=== PATIENT | female | born 1990 | race African-American/Black ===

== ENCOUNTER 2016-08-07 19:48 | Emergency (ER) | payer OTHER ==
[~2016-08-07] VITALS: Ht 144.8 cm; Wt 56.7 kg
[2016-08-07 19:48] VITALS: BP 110/67
[~2016-08-07 19:48] MED LIST: MIRALAX255 GM PO; TRINATE TABLET1 TAB PO
[2016-08-07] MEDS ORDERED: NAPROSYN500 MG PO (20:40)
[2016-08-07] MEDS ORDERED: NORFLEX100 MG PO (20:40)
== END 2016-08-07 20:59 | disposition home or self-care (01) ==
LOC: ER 19:48
DX: S46.911A Strain of unspecified muscle, fascia and tendon at shoulder and upper arm level, right arm, initial encounter (principal); Z88.5 Allergy status to narcotic agent; S29.012A Strain of muscle and tendon of back wall of thorax, initial encounter; V89.2XXA Person injured in unspecified motor-vehicle accident, traffic, initial encounter; Y93.89 Activity, other specified; Y92.89 Other specified places as the place of occurrence of the external cause; Y99.8 Other external cause status

== ENCOUNTER 2017-10-15 07:08 | Emergency (ER) | payer OTHER ==
[~2017-10-15] VITALS: Ht 149.9 cm; Wt 54.0 kg
[~2017-10-15 07:08] MED LIST changes: +NAPROSYN500 MG PO; +NORFLEX100 MG PO
[2017-10-15 07:16] VITALS: BP 131/78
[2017-10-15] MEDS ORDERED: ULTRAM 50MG TAB50 MG PO (07:49)
[2017-10-15] MEDS ORDERED: AMOXICILLIN 50500 M1 PO (07:49)
[2017-10-15] MEDS ORDERED: NORCO 5-325 TA1 EACH PO (07:50)
== END 2017-10-15 08:13 | disposition home or self-care (01) ==
LOC: ER 07:08
DX: K04.7 Periapical abscess without sinus (principal); Z88.5 Allergy status to narcotic agent

== ENCOUNTER 2018-09-13 13:22 | Emergency (ER) | payer OTHER ==
[~2018-09-13] VITALS: Ht 144.8 cm; Wt 56.2 kg
[~2018-09-13 13:22] MED LIST changes: +AMOXICILLIN 50500 M1 PO; +NORCO 5-325 TA1 EACH PO; +ULTRAM 50MG TAB50 MG PO
[2018-09-13 15:45] VITALS: BP 118/59
== END 2018-09-13 14:50 | disposition home or self-care (01) ==
LOC: ER 13:22
DX: S80.862A Insect bite (nonvenomous), left lower leg, initial encounter (principal); Z88.5 Allergy status to narcotic agent; W57.XXXA Bitten or stung by nonvenomous insect and other nonvenomous arthropods, initial encounter; Y92.89 Other specified places as the place of occurrence of the external cause; Y93.89 Activity, other specified; Y99.8 Other external cause status